=== PATIENT | female | born 1970 | race Caucasian/White ===

== ENCOUNTER → 2023-01-27 | Outpatient (REF) | payer OTHER | LOC: M SFHCDERM 11:14 | PROVIDERS: ATTEND Physician Assistant | DX: L20.9 Atopic dermatitis, unspecified (principal); Z53.9 Procedure and treatment not carried out, unspecified reason ==

== ENCOUNTER → 2023-01-27 | Outpatient (CLI) | payer OTHER ==
[2023-01-28 23:11] LABS: ANA (HEP2) Positive (.)
== END ==
LOC: M LAB 10:22
PROVIDERS: ATTEND Physician Assistant
DX: L20.9 Atopic dermatitis, unspecified (principal)

== ENCOUNTER → 2024-03-04 | Outpatient (CLI) | payer OTHER | LOC: M RAD 11:15 | PROVIDERS: ATTEND Physician Assistant | DX: M67.441 Ganglion, right hand (principal); M19.041 Primary osteoarthritis, right hand ==